=== PATIENT | male | born 1985 ===

== ENCOUNTER 2025-05-16 04:08 | Inpatient (IN) | payer MEDICARE, OTHER ==
[2025-05-16] VITALS (25 sets, daily range): BP systolic 159–259; BP diastolic 80–135
[~2025-05-16] VITALS: Ht 182.9 cm; Wt 105.4 kg
[2025-05-16] MEDS ORDERED: Ondansetron HCl 2 MG / ML 2ML Vial IV PRN (06:20)
[2025-05-16] MEDS ORDERED: HydrALAZINE HCl 20 MG / ML 1ML Vial IV PRN (06:20)
[2025-05-16] MEDS ORDERED: FentaNYL Citrate 50 MCG/ML 2 ML Injection IV PRN (06:30)
--- NOTE | 2025-05-16 07:29 | NUR ---
SHIFT SUMMARY: PT ARRIVES TO PCU 5, A DIRECT FROM [facility] VIA GURNEY AROUND 0541. PT TRANSFERRED TO HOSPITAL BED SBA. PT ARRIVES WITH CRUTCHES. PT ORIENTED TO ROOM AND CALL LIGHT. HTN 208/117, ON 2L VIA NC. SR 90'S. PT RATES BACK PAIN 10/10, MEDICATED WITH 50 MCG IV FENTANYL, PER DR GENTILE ORDER. PT STATES HE STILL VOIDS. HAS A LEFT FOREARM FISTULA. CURRENTLY NPO. BED IN LOWEST POSITION, CALL LIGHT WITHIN REACH. REPORT TO ONCOMING NURSE.
[2025-05-16] MEDS ORDERED: ALBU90OI (07:38)
[2025-05-16] MEDS ORDERED: Carvedilol12.5 MG PO (07:39)
[2025-05-16] MEDS ORDERED: CALCITRIOL0.5 MC1 PO (07:39)
[2025-05-16] MEDS ORDERED: AMLO10 PO ×2 (07:39→14:23)
[2025-05-16 07:40] LABS: BASOPHILS ABSOLUTE AUTO 0.06 K/mm3 (0.00-0.23); BASOPHILS PERCENT AUTO 0 % (0-2); EOSINOPHILS ABSOLUTE AUTO 0.27 K/mm3 (0.00-0.68); EOSINOPHILS PERCENT AUTO 2 % (0-6); Hematocrit 26.7 % (37.0-53.0); Hemoglobin 8.6 g/dL (13.5-17.5); IMMATURE GRAN ABSOLUTE AUTO 0.21 K/mm3 (0.00-0.10); IMMATURE GRAN PERCENT AUTO 1 % (0-1); LYMPHOCYTES ABSOLUTE AUTO 1.40 K/mm3 (0.84-5.20); LYMPHOCYTES PERCENT AUTO 9 % (21-46); MONOCYTES ABSOLUTE AUTO 1.12 K/mm3 (0.16-1.47); MONOCYTES PERCENT AUTO 7 % (4-13); Mean Corpuscular HGB Conc 32.2 g/dL (31.5-36.5); Mean Corpuscular Volume 102 fL (80-100); NEUTROPHILS ABSOLUTE AUTO 12.04 K/mm3 (1.96-9.15); NEUTROPHILS PERCENT AUTO 80 % (41-73); NRBC ABSOLUTE 0.00 K/mm3 (0.00-0.02); NRBC Auto 0.0 /100 WBC (0.0-0.2); Platelet Count 283 K/mm3 (150-400); RDW Coefficient Variation 17.8 % (11.7-14.2); RDW Standard Deviation 64.2 fL (35.1-46.3)
[2025-05-16] MEDS ORDERED: HYDR100 PO ×2 (07:40→14:25)
[2025-05-16] MEDS ORDERED: CLOP75 PO ×2 (07:40→14:28)
[2025-05-16] MEDS ORDERED: HYDPAM25 PO (07:40)
[2025-05-16] MEDS ORDERED: Isosorbide Mono30 MG PO ×2 (07:41→14:15)
[2025-05-16] MEDS ORDERED: Robaxin750 MG PO ×2 (07:42→14:29)
[2025-05-16] MEDS ORDERED: MIRCERA IV ×3 (07:43→14:30)
[2025-05-16] MEDS ORDERED: MIRT15ST PO (07:43)
[2025-05-16] MEDS ORDERED: NITR.4SL SL (07:43)
[2025-05-16] MEDS ORDERED: OLME20 PO ×2 (07:43→14:30)
[2025-05-16] MEDS ORDERED: PROTONIX4010 PO (07:44)
[2025-05-16] MEDS ORDERED: ONDA4ODT MM (07:44)
[2025-05-16] MEDS ORDERED: PRAM.125 PO (07:45)
[2025-05-16] MEDS ORDERED: SERT25 PO (07:45)
[2025-05-16] MEDS ORDERED: SEVEC800 PO ×2 (07:45→14:31)
[2025-05-16] MEDS ORDERED: TORSE20 PO (07:46)
--- NOTE | 2025-05-16 07:50 | NUR ---
Pt is lethargic, arousable but very somnulent. Respirations are irregular, with apneic periods of 15-20 seconds, and intermittent brief associated hypoxia to 86-88% spo2. Pt on 2 l/min of oxygen after receiving 50 mcg fentanyl for extreme anxiety, per noc shift. Midline IV placed in the [facility]ER for lab draws as the pt was so anxious during lab draw attempts.
[2025-05-16 07:55] LABS: Prothrombin Time Results 11.7 Sec (9.7-11.5)
--- NOTE | 2025-05-16 07:57 | NUR ---
Pt was able to tell me that he wears a CPAP at home. continuous spo2 monitoring in place at this time.
[2025-05-16 08:18] LABS: Alanine Aminotransfer (ALT/SGP 37.0 U/L (12-78); Albumin, Blood 2.8 g/dL (3.4-5.0); Albumin/Globulin Ratio 0.9 (0.8-1.8); Anion Gap 17.0 mmol/L (3-11); Aspartate Aminotrans (AST/SGOT 21.0 U/L (12-37); Bilirubin, Total 0.6 mg/dL (0.1-1.0); Blood Urea Nitrogen 111.0 mg/dL (8-24); CO2, Blood 26.0 mmol/L (21-32); Calcium, Blood 7.2 mg/dL (8.5-10.1); Chloride, Blood 99.0 mmol/L (98-108); Creatinine, Blood 11.8 mg/dL (0.60-1.20); Globulin, Blood 3.0 g/dL (2.2-4.0); Glucose, Blood 104.0 mg/dL (70-99); Potassium, Blood 5.6 mmol/L (3.5-5.5); Sodium, Blood 136.0 mmol/L (136-145); Total Protein, Blood 5.8 g/dL (6.4-8.2)
[2025-05-16] MEDS ORDERED: Isosorbide Mononitrate 30 MG TABCR PO SCH (10:32)
[2025-05-16] MEDS ORDERED: Albuterol 2.5 MG/3 ML VIAL INH PRN (14:00)
[2025-05-16] MEDS ORDERED: LOSA50 PO (14:25)
[2025-05-16] MEDS ORDERED: Acetaminophen650 M1 PO (14:26)
[2025-05-16] MEDS ORDERED: Coreg12.5 MG PO (14:27)
[2025-05-16] MEDS ORDERED: ALBU90OI INH (14:27)
[2025-05-16] MEDS ORDERED: ATOR80 PO (14:32)
[2025-05-16] MEDS ORDERED: Vitamin D1000 UNI1 PO (14:34)
[2025-05-16] MEDS ORDERED: GABA100 PO (14:34)
[2025-05-16] MEDS ORDERED: SOAANZ40 M1 PO (14:35)
--- NOTE | 2025-05-16 14:55 | NUR ---
Pt is back from dialysis. Blood pressure remains elevated, 183/91 so IV hydralazine given per prn orders. Also just received updated pt chart information from his PCP office. Home med rec updated to reflect current prescriptions. Pt states he last took home meds yesterday morning.
[2025-05-16] MEDS ORDERED: Labetalol HCL 5 MG/ML 4ML Injection (Single Dose) IV PRN (15:30)
--- NOTE | 2025-05-16 15:37 | NUR ---
Talked to Dr. Tomas regarding pt's blood pressure and updated med list. New orders received.
--- NOTE | 2025-05-16 15:49 | NUR ---
Given meds for hypertension. q 1hour b/p checks.
[2025-05-16] MEDS ORDERED: Isosorbide Mononitrate 60 MG TABCR PO SCH (16:00)
--- NOTE | 2025-05-16 17:03 | NUR ---
Given IV labetolol as ordered for elevated blood pressure. Initially it helped but blood pressure continues to be elevated. Pt states that his blood pressure usually is over 200 systolic, and very difficult to control. He is c/o headache.
--- NOTE | 2025-05-16 17:32 | NUR ---
Pt walking to bathroom to have BM. Given tylenol prn for headache.
--- NOTE | 2025-05-16 17:43 | NUR ---
Pt continues to have high blood pressure, systolic greater than 200 despite IV and oral medication administration ordered by the hospitalist. Message left with Dr. Dubose to see what further measures can be done to bring it down. Pt states that his back pain is manageable at 3-4/10, which is where it is right now, but that his headache is 8/10, very painful. He says that his blood pressure is often very high. NOted that he has some office visits with b/p of 164/111, 183/111 recently per the chart notes faxed to us today.
--- NOTE | 2025-05-16 18:40 | NUR ---
New order for Cardblanca from Dr. Vasquez. Initial order for minoxidil not available on formulary.
[2025-05-17] VITALS (23 sets, daily range): BP systolic 118–201; BP diastolic 59–108
[2025-05-17 04:31] LABS: BASOPHILS ABSOLUTE AUTO 0.03 K/mm3 (0.00-0.23); BASOPHILS PERCENT AUTO 0 % (0-2); EOSINOPHILS ABSOLUTE AUTO 0.25 K/mm3 (0.00-0.68); EOSINOPHILS PERCENT AUTO 3 % (0-6); Hematocrit 23.3 % (37.0-53.0); Hemoglobin 7.5 g/dL (13.5-17.5); IMMATURE GRAN ABSOLUTE AUTO 0.10 K/mm3 (0.00-0.10); IMMATURE GRAN PERCENT AUTO 1 % (0-1); LYMPHOCYTES ABSOLUTE AUTO 0.96 K/mm3 (0.84-5.20); LYMPHOCYTES PERCENT AUTO 10 % (21-46); MONOCYTES ABSOLUTE AUTO 0.78 K/mm3 (0.16-1.47); MONOCYTES PERCENT AUTO 8 % (4-13); Mean Corpuscular HGB Conc 32.2 g/dL (31.5-36.5); Mean Corpuscular Volume 100 fL (80-100); NEUTROPHILS ABSOLUTE AUTO 7.93 K/mm3 (1.96-9.15); NEUTROPHILS PERCENT AUTO 79 % (41-73); NRBC ABSOLUTE 0.00 K/mm3 (0.00-0.02); NRBC Auto 0.0 /100 WBC (0.0-0.2); Platelet Count 242 K/mm3 (150-400); RDW Coefficient Variation 17.5 % (11.7-14.2); RDW Standard Deviation 61.7 fL (35.1-46.3)
--- NOTE | 2025-05-17 04:55 | NUR ---
SHIFT SUMMARY PT A&OX4 HOWEVER FALLS ASLEEP EASILY WHEN ASSESSING AND WORKING WITH PT. PT WAS ABLE TO AWAKE FOR A PERIOD OF TIME. PT ASKED TO TAKE A SHOWER AND WAS ABLE TO WALK TO SHOWER SBA AND BATHE AND BRUSH TEETH. PT WAS STARTED OF CARDURA BEFORE BED. IMPROVEMENT IN BP WAS SEEN FOR A FEW HOURS WITH SBP IN 150s HOWEVER HAS COME BACK UP TO SBP 180s-190 & DBP LOW 100s. OTHERWISE, VSS. ON TELE PT NSR IN 80s. ON RA WHILE AWAKE AND CPAP HS TO MAINTAIN >90%. PT FREQUENTLY REMOVING CPAP MASK THROUGHOUT NIGHT THOUGH. PT C/O 05/05 HEADACHE THROUGHOUT NIGHT HOWEVER WHENEVER THIS RN WOULD BRING MEDICATIONS TO RELIEVE PAIN PT WOULD BE ASLEEP. TRIED TO GIVE HIM FENTANYL IN THE BEGINNING OF SHIFT NOT AWARE OF SENSITIVITY TO MEDICATION AND ASSISTED INTO PUSHING THE FENTANYL PT BECAME VERY SOMNULENT. RESPIRATIONS WENT DOWN TO 12 HOWEVER PT WAS EASILY AROUSABLE. THIS NURSE DID NOT GIVE THE REST OF MEDICATION. PT CAME TO A FEW SECONDS LATER AND SAID "SORRY". WILL PASS ON TO DAY SHIFT TO NO LONGER GIVE MEDICATION. NO FURTHER QUESTIONS OR CONCERNS AT THIS TIME. WILL CONTINUE WITH PLAN OF CARE.
[2025-05-17 05:11] LABS: Alanine Aminotransfer (ALT/SGP 29.0 U/L (12-78); Albumin, Blood 2.6 g/dL (3.4-5.0); Albumin/Globulin Ratio 1.0 (0.8-1.8); Anion Gap 15.0 mmol/L (3-11); Aspartate Aminotrans (AST/SGOT 14.0 U/L (12-37); Bilirubin, Total 0.8 mg/dL (0.1-1.0); Blood Urea Nitrogen 92.0 mg/dL (8-24); CO2, Blood 28.0 mmol/L (21-32); Calcium, Blood 7.0 mg/dL (8.5-10.1); Chloride, Blood 97.0 mmol/L (98-108); Creatinine, Blood 10.8 mg/dL (0.60-1.20); Globulin, Blood 2.7 g/dL (2.2-4.0); Glucose, Blood 119.0 mg/dL (70-99); Potassium, Blood 5.6 mmol/L (3.5-5.5); Sodium, Blood 134.0 mmol/L (136-145); Total Protein, Blood 5.3 g/dL (6.4-8.2)
[2025-05-17] MEDS ORDERED: Isosorbide Mononitrate 30 MG TABCR PO SCH (09:00)
[2025-05-17] MEDS ORDERED: DOXA4 PO (14:48)
--- NOTE | 2025-05-17 16:54 | NUR ---
NEW MEDICATIONS AND DISCHARGE INSTRUCTIONS DISCLOSED WITH THE PT, PT VERBALIZED UNDERSTANDING. VITALS HAS BEEN STABLE NO ISSUES SINCE TRANSFER OF CARE. PT ACCOMPANIED TO ER ENTRANCE TO WAIT FOR A RIDE. PT IS AMBULATORY. ALL BELONGINGS SENT WITH THE PT
== END 2025-05-17 17:07 | disposition home or self-care (01) | DRG 640 ==
LOC: PCU 04:08
PROVIDERS: Hospitalist; ADMIT Internal Medicine
PROC: 5A1D70Z Performance of Urinary Filtration, Intermittent, Less than 6 Hours Per Day (ICD-10-PCS; principal; 2025-05-16)
DX: E87.70 Fluid overload, unspecified (principal); N18.6 End stage renal disease; I16.1 Hypertensive emergency; I13.2 Hypertensive heart and chronic kidney disease with heart failure and with stage 5 chronic kidney disease, or end stage renal disease; I50.32 Chronic diastolic (congestive) heart failure; Q60.0 Renal agenesis, unilateral; E87.5 Hyperkalemia; D63.1 Anemia in chronic kidney disease; E66.9 Obesity, unspecified; K21.9 Gastro-esophageal reflux disease without esophagitis; G47.30 Sleep apnea, unspecified; G43.909 Migraine, unspecified, not intractable, without status migrainosus; E78.5 Hyperlipidemia, unspecified; M54.50 Low back pain, unspecified; G89.29 Other chronic pain; I25.2 Old myocardial infarction; Z99.2 Dependence on renal dialysis; Z88.0 Allergy status to penicillin; Z91.040 Latex allergy status; Z79.02 Long term (current) use of antithrombotics/antiplatelets; Z98.890 Other specified postprocedural states; Z68.31 Body mass index [BMI] 31.0-31.9, adult
CPT/HCPCS: 71045; 80053; 85025; 85610; 87340; 93005; 93010; 93306; 94660; 94762; 96374; 96375; 96376; A9270; C1751; G0378; J0360; J2405; J3010

== ENCOUNTER 2025-05-20 05:34 | Observation (INO) | payer MEDICARE, OTHER ==
[~2025-05-20] VITALS: Wt 107.4 kg
[2025-05-20] VITALS (22 sets, daily range): BP systolic 147–204; BP diastolic 77–114
[~2025-05-20 05:34] MED LIST: ALBU90OI; ALBU90OI INH; AMLO10 PO; ATOR80 PO; Acetaminophen650 M1 PO; CALCITRIOL0.5 MC1 PO; CLOP75 PO; Carvedilol12.5 MG PO; Coreg12.5 MG PO; DOXA4 PO; GABA100 PO; HYDPAM25 PO; HYDR100 PO; Isosorbide Mono30 MG PO; LOSA50 PO; MIRCERA IV; MIRT15ST PO; NITR.4SL SL; OLME20 PO; ONDA4ODT MM; PRAM.125 PO; PROTONIX4010 PO; Robaxin750 MG PO; SERT25 PO; SEVEC800 PO; SOAANZ40 M1 PO; TORSE20 PO; Vitamin D1000 UNI1 PO
[2025-05-20 10:53] LABS: Magnesium, Blood 3.0 mg/dL (1.6-2.4)
[2025-05-20 11:20] LABS: Anion Gap 21.0 mmol/L (3-11); Blood Urea Nitrogen 137.0 mg/dL (8-24); CO2, Blood 24.0 mmol/L (21-32); Calcium, Blood 7.4 mg/dL (8.5-10.1); Chloride, Blood 95.0 mmol/L (98-108); Glucose, Blood 116.0 mg/dL (70-99); Sodium, Blood 133.0 mmol/L (136-145)
[2025-05-20 11:21] LABS: Creatinine, Blood 14.6 mg/dL (0.60-1.20); Phosphorus, Blood 11.0 mg/dL (2.5-4.9); Potassium, Blood 6.9 mmol/L (3.5-5.5)
[2025-05-20] MEDS ORDERED: Cholecalciferol 1000 Unit Tablet (=25MCG) PO SCH (16:30)
[2025-05-20] MEDS ORDERED: Albuterol HFA200 ACT/6.7 GM INH INH SCH (17:10)
[2025-05-20] MEDS ORDERED: Albuterol HFA200 ACT/6.7 GM INH INH PRN (19:30)
--- NOTE | 2025-05-20 19:32 | NUR ---
ASSUMPTION OF CARE ASSUMED PT'S CARE AT 1900,BEDSIDE REPORT COMPLETED.PT IN BED, DROWSY,OPENS EYES TO VERBAL COMMAND.RESPONDS TO QUESTIONS APPRORIATELY BUT FALLS ASLEEP MID SENTENCE.PLAN OF CARE REVIEWED.PT DENIES PAIN,DENIES NUMBNESS/TINGLING,DENIES NAUSEA,DENIES SOB.CALL LIGHT AND PT'S ITEMS WITHIN REACH.BED ALARM ON.MONITORING ONGOING PER CAREPLAN.
--- NOTE | 2025-05-20 19:43 | NUR ---
SHIFT SUMMARY PT WAS ALERT AND ORIENTED X 4 ON ADMISSION BUT HAS BEED LETHARGIC SINCE DIALYSIS THIS AFTERNOON. DIALYSIS REMOVED ABOUT 3L. STILL ANSWERS ALL ORIENTATION QUESTIONS APPRPRIATELY. 1 AST. W/ FWW TO BR FOR WEAKNESS AND NEUROPATHY IN FEET CAUSING DIFFICULTY AMBULATING AT TIMES. FREQUENT PAIN CAUSED BY HEADACHES, MANAGED W/ MEDICATIONS PER EMAR, MINIMIZING LIGHT, AND UNINTERRUPTED REST. PT IS ON 2L 02 NC AND SATTING ABOVE 95% AT THIS TIME BUT ONLY HAS IT PRN FOR OCCASIONAL SOB DUE TO DRY COUGH. BPS HAVE BEEN ELEVATED IN THE LATE PORTION OF THIS SHIFT, NOTIFIED, MEDICATING PER EMAR. OTHER VSS. PLANNING TO DIALYZE PT AGAIN TOMORROW IF APPROPRIATE.
[2025-05-21] VITALS (15 sets, daily range): BP systolic 123–183; BP diastolic 52–110
--- NOTE | 2025-05-21 06:23 | NUR ---
PT MONITORED DURING THE SHIFT.PT WOKE UP AT 2200 AND HAS BEEN AWAKE MOST OF THE NIGHT SITTING UP IN BED.A&O X4.PROVIDED SNACKS THROUGHOUT THE NIGHT PER PT'S REQUEST,SBP REMAINS ELEVATED IN THE 170'S.PT AWAKE AT THIS TIME,DENIES PAIN,DENIES NEEDS.CALL LIGHT AND PT'S ITEMS WITHIN REACH.MONITORING ONGOING PER CAREPLAN.
--- NOTE | 2025-05-21 08:55 | NUR ---
AM NOTE: PATIENT ALERT AND ORIENTED X4. CALM AND COOPERATIVE WITH CARES. DENIES PAIN. MOVING SELF IN BED. UP WITH SBA. ON 2L NASAL CANNULA, LUNG SOUNDS CLEAR. TITRATED TO ROOM AIR AND SATING ABOVE 95%. DENIES COUGH. TELE SHOWING SR WITH HR 80'S. DENIES CHEST PAIN/PRESSURE/PALPIATIONS. BLOOD PRESSURE ELEVATED. SEE CHARTED VITALS. DIALYSIS THIS AM. LEFT ARM FISTULA. PATIENT STATES HE STILL PRODUCES A SMALL AMOUNT OF URINE. TOLERATING PO DIET. DENIES ABDOMINAL PAIN/NAUSEA. MORNING LABS DRAWN AND PENDING. IV SALINE LOCKED. SKIN C/D/I WITH SOME SCATTERED SCABS/BRUISING AND OLD HEALED SCARS. PATIENT TAKEN TO DIALYSIS AT 0845.
[2025-05-21] MEDS ORDERED: Torsemide 20 MG TAB PO SCH (09:00)
[2025-05-21] MEDS ORDERED: Vitamin B Cmplx/Vit C/Folic Ac 1 Tab PO SCH (09:00)
[2025-05-21] MEDS ORDERED: Isosorbide Mononitrate 60 MG TABCR PO SCH (09:00)
[2025-05-21 09:52] LABS: Anion Gap 15.0 mmol/L (3-11); Blood Urea Nitrogen 87.0 mg/dL (8-24); CO2, Blood 29.0 mmol/L (21-32); Calcium, Blood 7.1 mg/dL (8.5-10.1); Chloride, Blood 95.0 mmol/L (98-108); Creatinine, Blood 11.2 mg/dL (0.60-1.20); Glucose, Blood 143.0 mg/dL (70-99); Potassium, Blood 6.0 mmol/L (3.5-5.5); Sodium, Blood 133.0 mmol/L (136-145)
--- NOTE | 2025-05-21 10:00 | NUR ---
CRITICAL VALUES FOR POTASSIUM AND CREATININE. DR. DUVALL ON UNIT AND NOTFIED BY THIS RN. PATIENT STILL IN DIALYSIS. ORDERS TO GIVE LOKELMA WHEN PATIENT RETURNS FROM DIALYSIS AND CONTINUE WITH DISCHARGE.
[2025-05-21] MEDS ORDERED: NEPHRO VITAMIN0.8 MG PO (10:08)
[2025-05-21] MEDS ORDERED: RENVELA800 MG PO (10:09)
[2025-05-21] MEDS ORDERED: LOKELMA10 GM PO (10:10)
--- NOTE | 2025-05-21 12:00 | NUR ---
DISCHARGE: NO ACUTE CHANGES. PATIENT BACK FROM DIALYSIS. VITALS STABLE. LOKELMA GIVEN. DISCHARGE INSTRUCTIONS REVIEWED WITH NEW MEDICATIONS, MEDICATIONS TO STOP, FOLLOW UP APPOINTMENTS, SIGNS AND SYMPTOMS OF WHEN TO RETURN AND MEDICATIONS FAXED TO [facility] IN [place]. PATIENT LEFT UNIT VIA WHEELCHAIR WITH ALL PERSONAL BELONGINGS AND DISCHARGE PACKET.
== END 2025-05-21 11:50 | disposition home or self-care (01) ==
LOC: PCU 05:34
PROVIDERS: Internal Medicine; ADMIT Student in an Organized Health Care Education/Training Program
DX: I13.2 Hypertensive heart and chronic kidney disease with heart failure and with stage 5 chronic kidney disease, or end stage renal disease (principal); N18.6 End stage renal disease; I50.9 Heart failure, unspecified; D63.1 Anemia in chronic kidney disease; K21.9 Gastro-esophageal reflux disease without esophagitis; E87.5 Hyperkalemia; E83.41 Hypermagnesemia; E83.39 Other disorders of phosphorus metabolism; F41.9 Anxiety disorder, unspecified; G25.81 Restless legs syndrome; E89.2 Postprocedural hypoparathyroidism; E66.9 Obesity, unspecified; Z99.2 Dependence on renal dialysis; Z87.891 Personal history of nicotine dependence; Z88.0 Allergy status to penicillin; Z79.02 Long term (current) use of antithrombotics/antiplatelets; Z79.899 Other long term (current) drug therapy
CPT/HCPCS: 36415; 80048; 83735; 84100; 84520; 94660; 94762; A9270; G0257; G0378

== ENCOUNTER 2025-07-21 00:26 | Observation (INO) | payer MEDICARE, OTHER ==
[~2025-07-21] VITALS: Wt 97.4 kg
[2025-07-21] VITALS (30 sets, daily range): BP systolic 139–214; BP diastolic 58–156
[~2025-07-21 00:26] MED LIST changes: -ATOR80 PO; +CARV25 PT; -Coreg12.5 MG PO; +LIPITOR80 MG PO; +LOKELMA10 GM PO; +NEPHRO VITAMIN0.8 MG PO; +RENVELA800 MG PO
[2025-07-21] MEDS ORDERED: Ondansetron HCl 2 MG / ML 2ML Vial IV PRN (02:45)
[2025-07-21] MEDS ORDERED: FLU VACC TS2025-26(6MOS UP)/PF 45 MCG/0.5 ML SYRINGE IM SCH (02:45)
--- NOTE | 2025-07-21 02:45 | NUR ---
ARRIVAL NOTE PATIENT ARRIVED TO PCU 20 VIA EMS AT 0230 TODAY. PATIENT ALERT AND AWAKE UPON ARRIVAL, DRESSED IN OWN CLOTHES, 20G IV TO R AC, NO OBVIOUS DISTRESS. PATIENT ABLE TO STAND AND TRANSFER FROM EMS GURNEY TO BED IN ROOM. INTRODUCED SELF AND ORIENTED PATIENT TO ROOM. ASSESSMENT DONE. PATIENT RECEIVED MEDICATIONS AT [facility] FOR POTASSIUM 5.9 INCLUDING, D50, 5 UNITS OF INSULIN, CALCIUM GLUCONATE, AND ALBUTEROL PRIOR TO DEPATURE. NO REPEAT POTASSIUM NOTED IN PAPERWORK AT THIS TIME. HOSPITALIST NOTIFIED OF PATIENT ARRIVAL. ORDERS PENDING.
--- NOTE | 2025-07-21 03:00 | NUR ---
CALL MADE TO HOSPITALIST TO NOTIFY OF PATIENT'S ARRIVAL.
--- NOTE | 2025-07-21 03:20 | NUR ---
UPDATE PATIENT HAS FALLEN ASLEEP AND BECAME VERY JERKY IN BED. RESPONSIVENESS HAS DECREASED. REPONDS TO REPEATED VERBAL STIMULI OR PAINFUL STIMULI. PATIENT REPORTS HAVING RESTLESS LEG SYNDROME. WHEN ASKED ABOUT JERKING MOVEMENTS AND BEING VERY SLEEPY WHILE HAVING CONVERSATION, PATIENT REPORTS HISTORY OF SAME. UNSURE RELIABILITY OF ANSWERS AT THIS TIME. PATIENT NOT RESPONDING TO QUESTIONS FOR ADMISSION ASSESSMENT AND HISTORY. REIVEWED THAT PATIENT HAS HISTORY OF PSEUDO SEIZURES. PATIENT REQUIRING O2 @ 4L NC TO KEEPT SATS >92%, HISTORY OF JOSR. BLOOD PRESSURE ELEVATED 200'S/100'S, PROVIDER MADE AWARE.
--- NOTE | 2025-07-21 03:23 | NUR ---
PATIENT BECAME VERY SLEEPY SHORTLY AFTER ARRIVAL. HE WAS INITIALLY AWAKE AND ABLE TO TRANSFER FROM
[2025-07-21] MEDS ORDERED: HydrALAZINE HCl 20 MG / ML 1ML Vial IV ONE (04:00)
[2025-07-21] MEDS ORDERED: Albuterol 2.5 MG/3 ML VIAL INH SCH (04:00)
[2025-07-21] MEDS ORDERED: HydrALAZINE HCl 20 MG / ML 1ML Vial IV PRN ×2 (04:00→13:10)
--- NOTE | 2025-07-21 04:05 | NUR ---
DR SHARPE TO BEDSIDE FOR EVAL. SPOKE WITH HER ABOUT ASSESSMENT AND REASON FOR TRANSFER. ONCE DR IN ROOM, PATIENT QUICKLY BECAME ALERT & SAT UP IN BED, AND JERKING MOVEMENTS STOPPED. PATIENT SPEAKING CLEARLY AND COHERANTLY WHILE ANSWERING QUESTIONS FOR PROVIDER.
[2025-07-21 04:12] LABS: BASOPHILS ABSOLUTE AUTO 0.08 K/mm3 (0.00-0.23); BASOPHILS PERCENT AUTO 1 % (0-2); EOSINOPHILS ABSOLUTE AUTO 0.42 K/mm3 (0.00-0.68); EOSINOPHILS PERCENT AUTO 4 % (0-6); Hematocrit 26.4 % (37.0-53.0); Hemoglobin 8.3 g/dL (13.5-17.5); IMMATURE GRAN ABSOLUTE AUTO 0.07 K/mm3 (0.00-0.10); IMMATURE GRAN PERCENT AUTO 1 % (0-1); LYMPHOCYTES ABSOLUTE AUTO 1.65 K/mm3 (0.84-5.20); LYMPHOCYTES PERCENT AUTO 16 % (21-46); MONOCYTES ABSOLUTE AUTO 0.84 K/mm3 (0.16-1.47); MONOCYTES PERCENT AUTO 8 % (4-13); Mean Corpuscular HGB Conc 31.4 g/dL (31.5-36.5); Mean Corpuscular Volume 101 fL (80-100); NEUTROPHILS ABSOLUTE AUTO 7.60 K/mm3 (1.96-9.15); NEUTROPHILS PERCENT AUTO 71 % (41-73); NRBC ABSOLUTE 0.02 K/mm3 (0.00-0.02); NRBC Auto 0.2 /100 WBC (0.0-0.2); Platelet Count 312 K/mm3 (150-400); RDW Coefficient Variation 17.3 % (11.7-14.2); RDW Standard Deviation 63.0 fL (35.1-46.3)
[2025-07-21 04:29] LABS: Prothrombin Time Results 11.8 Sec (9.7-11.5)
[2025-07-21 04:48] LABS: Magnesium, Blood 2.7 mg/dL (1.6-2.4); Phosphorus, Blood 6.9 mg/dL (2.5-4.9)
[2025-07-21] MEDS ORDERED: Labetalol HCL 5 MG/ML 4ML Injection (Single Dose) IV ONE (05:00)
[2025-07-21 05:03] LABS: Alanine Aminotransfer (ALT/SGP 31.0 U/L (12-78); Albumin, Blood 3.2 g/dL (3.4-5.0); Albumin/Globulin Ratio 1.2 (0.8-1.8); Anion Gap 13.0 mmol/L (3-11); Aspartate Aminotrans (AST/SGOT 25.0 U/L (12-37); Bilirubin, Total 0.5 mg/dL (0.1-1.0); Blood Urea Nitrogen 67.0 mg/dL (8-24); CO2, Blood 29.0 mmol/L (21-32); Calcium, Blood 8.6 mg/dL (8.5-10.1); Chloride, Blood 101.0 mmol/L (98-108); Creatinine, Blood 9.57 mg/dL (0.60-1.20); Globulin, Blood 2.7 g/dL (2.2-4.0); Glucose, Blood 105.0 mg/dL (70-99); Potassium, Blood 4.5 mmol/L (3.5-5.5); Sodium, Blood 138.0 mmol/L (136-145); Total Protein, Blood 5.9 g/dL (6.4-8.2)
--- NOTE | 2025-07-21 05:41 | NUR ---
DR MELVIN NOTIFIED OF CONTINUED ELEVATED BP. DR REQUESTED MED LIST, TOLD HIM THAT MEDS HAVE NOT BEEN RECONCILED D/T PATIENT NOT REMEMBERING WHAT HE TAKES AND NO LIST AVAILABLE. REQUEST CALL BACK ONCE BP MEDS RECONCILED.
--- NOTE | 2025-07-21 05:54 | NUR ---
DR GENTILE NOTIFIED OF BP 200/100+. ORDER RECEIVED FOR CLONIDINE 0.1MG PO NOW X1. PATIENT AWAKE AND MENTAL STATUS IMPROVED FROM EARLIER. STILL ATTEMPTING TO RECONCILE MED LIST AT THIS TIME WITH PATIENT.
[2025-07-21] MEDS ORDERED: METO100ER PO (05:59)
--- NOTE | 2025-07-21 06:01 | NUR ---
CALL TO PHARMACY REQUESTING BP MED BE VERIFIED SO THAT IT CAN BE GIVEN
[2025-07-21] MEDS ORDERED: Calcium Acetat667 MG PO (06:07)
[2025-07-21] MEDS ORDERED: ROPI.25 PO (06:09)
[2025-07-21] MEDS ORDERED: CLONIDINE1 EA10 TD (06:13)
[2025-07-21] MEDS ORDERED: Darbepoetin (Pharmacy Consult) SC SCH (06:25)
--- NOTE | 2025-07-21 06:42 | NUR ---
DISCUSSED RECENT MEDICATION FILLS FOR BP ON 06/[address] MELVIN. ORDERS RECEIVED. PATIENT ASLEEP AND CALM IN BED. AWOKE TO TAKE BP MEDS W/O ISSUE.
[2025-07-21] MEDS ORDERED: CALCITRIOL0.5 MC1 PO (07:44)
[2025-07-21] MEDS ORDERED: CINACALCET HCL60 M1 PO (07:45)
[2025-07-21] MEDS ORDERED: NITR.4SL SL (07:47)
[2025-07-21] MEDS ORDERED: ESCI10 PO (07:49)
[2025-07-21] MEDS ORDERED: TORSE20 PO (07:49)
[2025-07-21] MEDS ORDERED: ROPINIROLE HC0.2510 PO (07:50)
[2025-07-21] MEDS ORDERED: Sevelamer Carbonate 2.4 GM / PKT PO SCH (08:30)
[2025-07-21] MEDS ORDERED: Calcium Acetate 667 MG Gel Cap PO SCH (08:30)
[2025-07-21] MEDS ORDERED: Isosorbide Mononitrate 60 MG TABCR PO SCH (09:00)
--- NOTE | 2025-07-21 10:00 | NUR ---
AM NOTE: PATIENT ALERT AND ORIENTED. VERY SLEEPY AND WANTING TO BE LEFT ALONE. ABLE TO ANSWER QUESTIONS APPROPRIATELY AND FOLLOW ALL COMMANDS. PERRLA, WEARING GLASSES. DENIES PAIN BUT ENDORSE HE DID HAVE SOME CHEST PAIN AND HEADACHE PRIOR IN THE EMERGENCY DEPARTMENT IN [place]. TELE SHOWING SR WITH HR 80'S. BLOOD PRESSURE ELEVATED WITH SBP 200'S AT START OF SHIFT. PATIENT BLOOD PRESSURE IMPROVED WITH SBP 150-170'S. DENIES CHEST PAIN/PRESSURE/PALPIATIONS AT THIS TIME. NO EDEMA NOTED. LEFT ARM FISTULA. RIGHT PERIPHERAL IV AND POWERGLIDE SALINE LOCKED. ON 2L NASAL CANNULA DUE TO DESATURATION WHEN SLEEPING. ON ROOM AIR WHILE AWAKE. DENIES SOB/COUGH. EVEN AND UNLABORED RESPIRATIONS. LUNG SOUNDS CLEAR. BOWEL TONES PRESENT. DENIES ABDOMINAL PAIN/NAUSEA. TOLERATING PO DIET. SITTING UPRIGHT IN BED THIS AM AND ATE A FULL BREAKFAST. SKIN C/D/I WITH SOME SCATTERED BRUISING. DR. SALCIDO AND DR. ADAMS TO BEDSIDE THIS MORNING. UPDATED ON CURRENT VITALS AND COMPLETED MED REC. NO NEW ORDERS FOR THIS RN TO PLACE. DR. MELVIN ALSO TO BEDSIDE AND PLAN FOR DIALYSIS THIS MORNING. CALL LIGHT IN REACH. PATIENT RESTING IN BED, WATCHING TV AND DENIES NEEDS.
[2025-07-21 10:05] LABS: Anion Gap 13.0 mmol/L (3-11); Blood Urea Nitrogen 66.0 mg/dL (8-24); CO2, Blood 28.0 mmol/L (21-32); Calcium, Blood 8.3 mg/dL (8.5-10.1); Chloride, Blood 101.0 mmol/L (98-108); Creatinine, Blood 10.2 mg/dL (0.60-1.20); Glucose, Blood 176.0 mg/dL (70-99); Potassium, Blood 5.4 mmol/L (3.5-5.5); Sodium, Blood 137.0 mmol/L (136-145)
--- NOTE | 2025-07-21 10:22 | NUR ---
PATIENT TO DIALYSIS AT THIS TIME.
--- NOTE | 2025-07-21 11:56 | NUR ---
CALL FROM DIALYSIS NURSE TO THIS RN CONCERNED WITH PATIENT BLOOD PRESSURE. THIS RN PLACED CALL TO DR. SALCIDO TO UPDATE. DR. SALCIDO TO PLACE ORDERS.
--- NOTE | 2025-07-21 12:40 | NUR ---
DR. SALCIDO CALLED TO REQUEST TYLENOL FOR PATIENT HEADACHE. THIS RN ALSO REMINDED OF PATIENT HOME MED REC COMPLETION. DR. SALCIDO TO PLACE ORDERS.
--- NOTE | 2025-07-21 13:09 | NUR ---
DR. MELVIN PLACED CALL TO THIS RN AND ASKED TO PLACE THESE ORDERS: - CLONIDINE PO 0.2MG TID, WITH FIRST DOSE STARTING NOW. DR. MELVINR UPDATED PATIENT JUST RECIEVED ONE TIME DOSE OF CLONIDINE 0.1MG AT 1152. - HYDRALAZINE IV 10-20MG Q6 PRN FOR SBP GREATER THAN 180 AND HR LESS THAN 60 AND TO DISCONTINUE CURRENT IV HYDRALAZINE ORDER. - LABETALOL IV 10-20MG Q6 PRN FOR SBP GREATER THAN 180 AND HR GREATER THAN 60. ORDERS IN PLACE. PATIENT STILL IN DIALYSIS AT THIS TIME.
[2025-07-21] MEDS ORDERED: Labetalol HCL 5 MG/ML 4ML Injection (Single Dose) IV PRN (13:10)
[2025-07-21] MEDS ORDERED: Albuterol HFA200 ACT/6.7 GM INH INH PRN (13:35)
--- NOTE | 2025-07-21 14:01 | NUR ---
PATIENT BACK FROM DIALYSIS BP 152/95. STILL COMPLAING OF SLIGHT HEADACHE. EATING AT THIS TIME. DENIES NEEDS. CALL LIGHT IN REACH.
--- NOTE | 2025-07-21 16:54 | NUR ---
DR. SALCIDO TO UNIT, THIS RN PROVIDED UPDATE ON PATIENT. NO NEW ORDERS FOR THIS RN TO PLACE. PATIENT DRINKING COFFEE AND WATCHING TV AT THIS TIME. CALL LIGHT IN REACH. DENIES NEEDS.
--- NOTE | 2025-07-21 18:18 | NUR ---
SHIFT SUMMARY: REMAINS ALERT AND ORIENTED. BLOOD PRESSURE CONTINUES TO IMPROVE WITH SBP 140'S THIS EVENING. MEDICATED X1 FOR HEADACHE THIS SHIFT. DIALYSIS COMPLETED. ON 2L NASAL CANNULA WHEN SLEEPING. TOLERATING PO DIET. TELE SHOWING SR WITH HR 70-80'S. PLAN FOR DIALYSIS AGAIN TOMORROW PER CENTER MACHINE SET UP OPERATOR. DENIES NEEDS AT THIS TIME, PATIENT RESTING IN BED WITH EYES CLOSED. CALL LIGHT IN REACH.
[2025-07-22] VITALS (16 sets, daily range): BP systolic 135–205; BP diastolic 75–157
[2025-07-22 03:45] LABS: Hematocrit 22.9 % (37.0-53.0); Hemoglobin 7.3 g/dL (13.5-17.5)
[2025-07-22 04:05] LABS: Albumin, Blood 2.7 g/dL (3.4-5.0); Anion Gap 9 mmol/L (3-11); Blood Urea Nitrogen 47 mg/dL (8-24); CO2, Blood 33 mmol/L (21-32); Calcium, Blood 8.2 mg/dL (8.5-10.1); Chloride, Blood 98 mmol/L (98-108); Creatinine, Blood 7.88 mg/dL (0.60-1.20); Glucose, Blood 107 mg/dL (70-99); Magnesium, Blood 2.5 mg/dL (1.6-2.4); Phosphorus, Blood 5.8 mg/dL (2.5-4.9); Potassium, Blood 5.1 mmol/L (3.5-5.5); Sodium, Blood 135 mmol/L (136-145)
--- NOTE | 2025-07-22 05:58 | NUR ---
SHIFT SUMMARY PT IS A&O X4, ABLE TO MAKE NEEDS KNOWN, MOVING ALL EXTREMITIES WITH PURPOSE, OBEYS COMMANDS, REPOSITIONING SELF IN BED, SBA, CALLS APPROPRIATELY. CONTINUOUS SPO2, SPO2 GREATER THAN 92% ON RA, LUNGS SOUND CLEAR WITH FINE CRACKLES AND DIMINISHED IN THE BASES. CONTINUOUS TELE MONITORING, SINUS 60-70 S, PULSES PRESENT T/O, BP ELEVATED AT TIMES, PT DENIES CHEST P/P T/O THIS SHIFT. BOWEL TONES PRESENT IN ALL 4Q, PT DENIES FEELINGS OF NAUSEA OR CONSTIPATION. OLURIC, HX DIALYSIS. BED LOWEST POSITION, CALL LIGHT IN REACH, AWAITING TO GIVE REPORT TO ONCOMING RN.
[2025-07-22] MEDS ORDERED: Vitamin B Cmplx/Vit C/Folic Ac 1 Tab PO SCH (06:00)
--- NOTE | 2025-07-22 08:00 | NUR ---
AM NOTE: PATIENT ALERT AND ORIENTED X4. DENIES PAIN. MOVING ALL EXTREMTIES. STILL ENDORSES FEELING WEAK. PERRLA, WEARING GLASSES. TELE SHOWING SINUS RHYTHM WITH HR 70-80'S. DENIES CHEST PAIN/PRESSURE/PALPIATIONS. IV'S SALINE LOCKED. PPP. LEFT ARM FISTULA. NO EDEMA NOTED. BLOOD PRESSURE STABLE. DIALYSIS SCHEDULED FOR THIS MORNING. ON ROOM AIR WHILE AWAKE AND NEEDING 2L NASAL CANNULA WHEN ASLEEP. LUNG SOUNDS CLEAR. EVEN AND UNLABORED RESPIRATIONS. OCCASIONAL DRY COUGH. PATIENT RECENTLY HAD PNEUMONIA AND FINISHED COURSE OF ABX. BOWEL TONES PRESENT. DENIES ABDOMINAL PAIN/NAUSEA. TOLERATING PO DIET. ATE A FULL BREAKFAST THIS TIME. SKIN WITH SCATTERED BRUISING.
[2025-07-22] MEDS ORDERED: Torsemide 20 MG TAB PO SCH (09:00)
--- NOTE | 2025-07-22 10:06 | NUR ---
PATIENT BACK FROM DIALYSIS AT THIS TIME. VITAL SIGNS STABLE. DR. ADAMS AT BEDSIDE, THIS RN PRESENT.
[2025-07-22] MEDS ORDERED: CATAPRES0.2 M1 PO (12:52)
[2025-07-22] MEDS ORDERED: LOKELMA10 GM PO (12:54)
--- NOTE | 2025-07-22 13:27 | NUR ---
DISCHARGE: NO ACUTE CHANGES. PATIENT EDUCATED ON DISCHARGE PACKET, FOLLOW UP APPOINTMENT, NEW MEDICATIONS, SIGNS AND SYMPTOMS TO RETURN AND MEDS SENT TO [facility] IN [place]. IV'S REMOVED. PATIENT LEFT UNIT WITH ALL PERSONAL BELONGINGS AND DISCHARGE PACKET AT 1258.
== END 2025-07-22 12:58 | disposition home or self-care (01) ==
LOC: PCU 00:26
PROVIDERS: Internal Medicine Nephrology; ADMIT Internal Medicine
DX: I12.0 Hypertensive chronic kidney disease with stage 5 chronic kidney disease or end stage renal disease (principal); N18.6 End stage renal disease; Z99.2 Dependence on renal dialysis; E87.5 Hyperkalemia; I16.0 Hypertensive urgency; D63.1 Anemia in chronic kidney disease; E87.70 Fluid overload, unspecified; Z88.0 Allergy status to penicillin; Z91.040 Latex allergy status
CPT/HCPCS: 80048; 80053; 80069; 82947; 83735; 83880; 84100; 85014; 85018; 85025; 85610; 96374; 96375; A9270; C1751; G0257; G0378; J0360

== ENCOUNTER 2025-08-12 03:47 | Inpatient (IN) | payer MEDICARE, OTHER ==
[~2025-08-12] VITALS: Ht 182.9 cm; Wt 95.5 kg
[2025-08-12] VITALS (22 sets, daily range): BP systolic 156–229; BP diastolic 97–154
[~2025-08-12 03:47] MED LIST changes: +CATAPRES0.2 M1 PO; +CINACALCET HCL60 M1 PO; +CLONIDINE1 EA10 TD; +Calcium Acetat667 MG PO; +ESCI10 PO; +METO100ER PO; +ROPI.25 PO; +ROPINIROLE HC0.2510 PO
[2025-08-12] MEDS ORDERED: Darbepoetin (Pharmacy Consult) SC SCH (08:40)
[2025-08-12] MEDS ORDERED: FLU VACC TS2025-26(6MOS UP)/PF 45 MCG/0.5 ML SYRINGE IM SCH (08:50)
[2025-08-12] MEDS ORDERED: HYDROcodone 5-APAP 325 TAB PO PRN (08:50)
[2025-08-12] MEDS ORDERED: Vitamin B Cmplx/Vit C/Folic Ac 1 Tab PO SCH (09:00)
[2025-08-12] MEDS ORDERED: TRAZ100 PO (09:19)
[2025-08-12] MEDS ORDERED: PRAMIPEXOLE DI0.5 M1 PO (09:21)
[2025-08-12] MEDS ORDERED: VITAMIN D31250 MC2 PO (09:23)
[2025-08-12 09:54] LABS: BASOPHILS ABSOLUTE AUTO 0.10 K/mm3 (0.00-0.23); BASOPHILS PERCENT AUTO 1 % (0-2); EOSINOPHILS ABSOLUTE AUTO 0.17 K/mm3 (0.00-0.68); EOSINOPHILS PERCENT AUTO 1 % (0-6); Hematocrit 28.9 % (37.0-53.0); Hemoglobin 9.5 g/dL (13.5-17.5); IMMATURE GRAN ABSOLUTE AUTO 0.07 K/mm3 (0.00-0.10); IMMATURE GRAN PERCENT AUTO 0 % (0-1); LYMPHOCYTES ABSOLUTE AUTO 1.02 K/mm3 (0.84-5.20); LYMPHOCYTES PERCENT AUTO 7 % (21-46); MONOCYTES ABSOLUTE AUTO 1.04 K/mm3 (0.16-1.47); MONOCYTES PERCENT AUTO 7 % (4-13); Mean Corpuscular HGB Conc 32.9 g/dL (31.5-36.5); Mean Corpuscular Volume 100 fL (80-100); NEUTROPHILS ABSOLUTE AUTO 13.38 K/mm3 (1.96-9.15); NEUTROPHILS PERCENT AUTO 85 % (41-73); NRBC ABSOLUTE 0.00 K/mm3 (0.00-0.02); NRBC Auto 0.0 /100 WBC (0.0-0.2); Platelet Count 251 K/mm3 (150-400); RDW Coefficient Variation 17.9 % (11.7-14.2); RDW Standard Deviation 66.4 fL (35.1-46.3)
[2025-08-12] MEDS ORDERED: Albuterol HFA200 ACT/6.7 GM INH INH PRN (10:15)
[2025-08-12] MEDS ORDERED: Isosorbide Mononitrate 30 MG TABCR PO SCH (10:15)
[2025-08-12] MEDS ORDERED: ONDA4ODT MM (10:52)
[2025-08-12] MEDS ORDERED: TIZA4 PO (10:53)
[2025-08-12 11:06] LABS: Albumin, Blood 3.3 g/dL (3.4-5.0); Anion Gap 19 mmol/L (3-11); Blood Urea Nitrogen 101 mg/dL (8-24); CO2, Blood 23 mmol/L (21-32); Calcium, Blood 8.6 mg/dL (8.5-10.1); Chloride, Blood 96 mmol/L (98-108); Glucose, Blood 93 mg/dL (70-99); Sodium, Blood 132 mmol/L (136-145)
[2025-08-12 11:07] LABS: Phosphorus, Blood 10.6 mg/dL (2.5-4.9); Potassium, Blood 6.4 mmol/L (3.5-5.5)
[2025-08-12 11:08] LABS: Creatinine, Blood 12.90 mg/dL (0.60-1.20)
[2025-08-12] MEDS ORDERED: Calcium Acetate 667 MG Gel Cap PO SCH (12:30)
[2025-08-12] MEDS ORDERED: Heparin Sodium,Porcine 5,000 UNIT/0.5 ML SDV SC SCH (16:00)
[2025-08-12] MEDS ORDERED: Calcium Gluconate 10% 100 MG/ML INJ IV ONE (17:35)
--- NOTE | 2025-08-12 18:16 | NUR ---
SHIFT SUMMARY: PT DIRECT ADMIT THIS MORNING FROM [facility]. PT A&OX4. PT FOLLOWS COMMANDS AND MAKES NEEDS KNOWN TO STAFF. PT VERY ANXIOUS THROUGHOUT THE SHIFT DESPITE MEDICATIONS. PT REMAINS HYPERTENSIVE. PROVIDER AWARE AND PT MEDICATED PER EMAR. PT WAS IN DIALYSIS FROM 1200 TO 1600 AND HAD 3.5 LITERS TAKEN OFF. PT SINUS ON THE MONITOR. PT ABLE TO EAT ALL MEALS WITHOUT COMPLAINTS. PT COMPLAINTING OF DIZZINESS WHEN STANDING UP WHICH WAS OCCURING PRIOR TO ARRIVAL. CPAP AT BEDSIDE FOR SLEEPING WHICH HE USES "SOMETIMES" AT HOME. PT DESTATING DOWN TO 60% WHILE SLEEPING DESPITE OXYGEN USE. NO OTHER SIGNIFICANT EVENTS HAPPENED DURING THE SHIFT. WILL CONTINUE TO CARE FOR PT UNTIL END OF SHIFT.
[2025-08-13] VITALS (23 sets, daily range): BP systolic 118–189; BP diastolic 59–119
[2025-08-13] MEDS ORDERED: HydrALAZINE HCl 20 MG / ML 1ML Vial IV PRN (04:55)
[2025-08-13 04:57] LABS: BASOPHILS ABSOLUTE AUTO 0.04 K/mm3 (0.00-0.23); BASOPHILS PERCENT AUTO 1 % (0-2); EOSINOPHILS ABSOLUTE AUTO 0.20 K/mm3 (0.00-0.68); EOSINOPHILS PERCENT AUTO 3 % (0-6); Hematocrit 25.5 % (37.0-53.0); Hemoglobin 8.1 g/dL (13.5-17.5); IMMATURE GRAN ABSOLUTE AUTO 0.03 K/mm3 (0.00-0.10); IMMATURE GRAN PERCENT AUTO 0 % (0-1); LYMPHOCYTES ABSOLUTE AUTO 0.86 K/mm3 (0.84-5.20); LYMPHOCYTES PERCENT AUTO 13 % (21-46); MONOCYTES ABSOLUTE AUTO 0.62 K/mm3 (0.16-1.47); MONOCYTES PERCENT AUTO 9 % (4-13); Mean Corpuscular HGB Conc 31.8 g/dL (31.5-36.5); Mean Corpuscular Volume 101 fL (80-100); NEUTROPHILS ABSOLUTE AUTO 4.99 K/mm3 (1.96-9.15); NEUTROPHILS PERCENT AUTO 74 % (41-73); NRBC ABSOLUTE 0.00 K/mm3 (0.00-0.02); NRBC Auto 0.0 /100 WBC (0.0-0.2); Platelet Count 205 K/mm3 (150-400); RDW Coefficient Variation 17.7 % (11.7-14.2); RDW Standard Deviation 66.3 fL (35.1-46.3)
[2025-08-13 05:50] LABS: Magnesium, Blood 2.7 mg/dL (1.6-2.4)
[2025-08-13] MEDS ORDERED: Vitamin B Cmplx/Vit C/Folic Ac 1 Tab PO SCH (06:00)
[2025-08-13 06:19] LABS: Albumin, Blood 2.8 g/dL (3.4-5.0); Anion Gap 12 mmol/L (3-11); Blood Urea Nitrogen 67 mg/dL (8-24); CO2, Blood 31 mmol/L (21-32); Calcium, Blood 8.4 mg/dL (8.5-10.1); Chloride, Blood 96 mmol/L (98-108); Glucose, Blood 111 mg/dL (70-99); Potassium, Blood 5.4 mmol/L (3.5-5.5); Sodium, Blood 134 mmol/L (136-145)
[2025-08-13 06:20] LABS: Creatinine, Blood 10.00 mg/dL (0.60-1.20); Phosphorus, Blood 9.1 mg/dL (2.5-4.9)
--- NOTE | 2025-08-13 07:53 | NUR ---
SHIFT SUMMARY: PT IS A&OX4, COOPERATIVE WITH CARE. HYPERTENSIVE ON 3L OXYGEN VIA NC SATS >95%. SR IN THE 70'S. PT DID WEAR THE HOSPITAL'S CPAP WITH A 3L OXYGEN BLEED- IN WHILE HE WAS ASLEEP. HE STATES IT DOESN'T FIT WELL HIS OWN, SO HE IS ASKING IF SOMEONE CAN BRING THAT INTO THE HOSPITAL FOR HIM. PT IS STATING HE HAS LOST HIS EYE GLASSES, STATES HE BROUGHT THEM INTO THE HOSPITAL WITH HIM. THIS RN SEARCHED HIS BED AND ROOM, WITH NO LUCK IN FINDING THEM. HE SLEPT T/O THE NOC. HE C/O PAIN TO HIS BACK 03/05, MEDICATED PER EMAR WITH 5MG PO NORCO. TOLERATING A RENAL DIET. NO URINE OUTPUT AND NO BM THIS SHIFT. BED IN LOWEST POSITION, CALL LIGHT WITHIN REACH. CALLS APPROPRIATELY AND IS ABLE TO ADVOCATE NEEDS EFFECTIVELY. DR MELVIN TO BEDSIDE THIS MORNING AND INFORMS THE PT THAT HE WANTS HIM TO DO ANOTHER ROUND OF HD TODAY.
[2025-08-13] MEDS ORDERED: Cholecalciferol 1000 Unit Tablet (=25MCG) PO SCH (09:00)
[2025-08-13] MEDS ORDERED: Torsemide 20 MG TAB PO SCH (09:00)
--- NOTE | 2025-08-13 11:57 | NUR ---
DIALYSIS PT TO DIALYSIS AT APPROX 1150, VSS, PT LEFT THE UNIT ON 3L O2 VIA NC, W/ O2 MONITOR, AND TELE. MEDICATED FOR ANXIETY PER EMAR, PT STATES NO OTHER NEEDS AT THIS TIME.
--- NOTE | 2025-08-13 15:34 | NUR ---
DIALYSIS: BACK FROM DIALYSIS AT APPROX 1530, CORPORATE SPECIALIST REPORTS APPROX 3L OFF.
--- NOTE | 2025-08-13 16:11 | NUR ---
"Spiritual Care Visit | Pt. Request Pt. is awake in bed and is getting settled in after returning form dialysis. Pt. displays evidence of being somnolent but welcomes my visit. Pt. did not participate significantly in the life review but welcomed prayer. Prayed with the Pt. Pt. welcomed this plant facilities technician to return when he was more awake."
--- NOTE | 2025-08-13 18:12 | NUR ---
SHIFT SUMMARY: A/O X4, PLEASANT AND COOPERATIVE WITH CARE, AGITATION INCREASES WITH ANXIETY. PT TO DIALYSIS TODAY, RN REPORTS APPROX 3L OFF, PT DROWSY UPON RETURN TO UNIT, PT REPORTS INSOMNIA AT BASELINE WITH APPROX THE PREVIOUS 5 NIGHTS OF NO SLEEP. LEFT ARM FISTULA WITH BRUIT AND THRILL, POWER GLIDE TO RUE, IV RAC, NSR, HRR 60'S-70'S, HYPERTENSIVE AT APPROX 0815, NORMOTENSIVE UPRON RETURN FROM DIALYSIS. 1 EPISODE OF GAGGING AT DINNER, SUCTION SET UP AT BEDSIDE, PT HAS EMISIS BAG, PT REPORTS HX OF GAGGING ON FOOD, PT REPORTS MAY BE RELATED TO ANXIETY, PT THEN ATE APPROX 50% OF DINNER WITHOUT INCIDENT.
[2025-08-14] VITALS (18 sets, daily range): BP systolic 95–156; BP diastolic 63–92
[2025-08-14 05:44] LABS: Hematocrit 24.8 % (37.0-53.0); Hemoglobin 7.9 g/dL (13.5-17.5)
[2025-08-14 06:37] LABS: Magnesium, Blood 2.6 mg/dL (1.6-2.4)
[2025-08-14 06:45] LABS: Albumin, Blood 2.7 g/dL (3.4-5.0); Anion Gap 10 mmol/L (3-11); Blood Urea Nitrogen 45 mg/dL (8-24); CO2, Blood 35 mmol/L (21-32); Calcium, Blood 8.3 mg/dL (8.5-10.1); Chloride, Blood 96 mmol/L (98-108); Creatinine, Blood 8.41 mg/dL (0.60-1.20); Glucose, Blood 105 mg/dL (70-99); Phosphorus, Blood 7.7 mg/dL (2.5-4.9); Potassium, Blood 4.3 mmol/L (3.5-5.5); Sodium, Blood 137 mmol/L (136-145)
--- NOTE | 2025-08-14 07:25 | NUR ---
SHIFT SUMMARY: PT IS A&OX4, VERY DROWSY AND FALLS ASLEEP MID SENTENCE, BUT COOPERATIVE WITH CARE. VSS ON 3L OXYGEN VIA NC SATS >93%. SR IN THE 60'S. PT DID WEAR THE HOSPITAL'S CPAP WITH A 3L OXYGEN BLEED IN WHILE HE WAS ASLEEP. IT APPEARED HE SLEPT T/O THE NIGHT. DENIES PAIN THIS SHIFT. TOLERATING A RENAL DIET. NO URINE OUTPUT AND NO BM THIS SHIFT. BED IN LOWEST POSITION, CALL LIGHT WITHIN REACH. CALLS APPROPRIATELY AND IS ABLE TO ADVOCATE NEEDS EFFECTIVELY. DR MELVIN TO BEDSIDE THIS MORNING AND INFORMS THE PT THAT HE WANTS HIM TO DO ANOTHER ROUND OF HD TODAY.
--- NOTE | 2025-08-14 08:42 | NUR ---
DIALYSIS UPDATE: SBP <145, HRR 58-62, CLARIFIED MED ADMINISTRATION WITH JIG MILL OPERATOR, HOLD ALL MEDS EXCEPT ANXIIOLYTIC UNTIL AFTER DIALYSIS TX.
--- NOTE | 2025-08-14 09:31 | NUR ---
DIALYSIS: PT TO DIALYSIS AT APPROX 0900 ON 3L O2 VIA NC AND TELE MONITOR.
--- NOTE | 2025-08-14 11:52 | NUR ---
DIALYSIS: PT RETURNED FROM DIALYSIS AT APPROX 1130, VSS, PER AMERICAN[employer]ATION TEACHER APPROX 2L OFF.
--- NOTE | 2025-08-14 13:59 | NUR ---
DISCHARGE SUMMARY: PT A/O X4, TO DIALYSIS THIS MORNING, VSS, PT VERBALIZED UNDERSTANDING OF DISCHARGE INSTRUCTIONS, PT LEFT THE UNIT AT APPROX 1400 ON 2L O2 VIA NC, PT PICKED UP AT [place] [facility] BY [facility], LEFT UNIT IN WHEELCHAIR, WITH ALL BELONGINGS AND WITHOUT INCIDENT.
[2025-08-14] MEDS ORDERED: Darbepoetin Alfa In Albumn Sol 40 MCG/0.4 ML SC SCH (16:00)
== END 2025-08-14 14:00 | disposition home or self-care (01) | DRG 640 ==
LOC: PCU 03:47
PROVIDERS: Internal Medicine Nephrology; ADMIT Internal Medicine
PROC: 5A1D70Z Performance of Urinary Filtration, Intermittent, Less than 6 Hours Per Day (ICD-10-PCS; principal; 2025-08-12)
DX: E87.5 Hyperkalemia (principal); J96.21 Acute and chronic respiratory failure with hypoxia; N18.6 End stage renal disease; I50.32 Chronic diastolic (congestive) heart failure; Q60.0 Renal agenesis, unilateral; E87.70 Fluid overload, unspecified; Z99.2 Dependence on renal dialysis; R60.0 Localized edema; E87.1 Hypo-osmolality and hyponatremia; D63.1 Anemia in chronic kidney disease; E83.39 Other disorders of phosphorus metabolism; G47.33 Obstructive sleep apnea (adult) (pediatric); E78.5 Hyperlipidemia, unspecified; F41.1 Generalized anxiety disorder; F41.0 Panic disorder [episodic paroxysmal anxiety]; K21.9 Gastro-esophageal reflux disease without esophagitis; I11.0 Hypertensive heart disease with heart failure; R05.9 Cough, unspecified; Z88.0 Allergy status to penicillin; I25.2 Old myocardial infarction; Z95.5 Presence of coronary angioplasty implant and graft; Z87.891 Personal history of nicotine dependence; Z79.02 Long term (current) use of antithrombotics/antiplatelets; Z99.81 Dependence on supplemental oxygen
CPT/HCPCS: 71046; 80069; 82330; 83735; 84484; 85014; 85018; 85025; 93005; 93010; 93308; 93321; 94660; 94762; 96374; 96375; 96376; A9270; G0378; J0360; J0612; Q0177